=== PATIENT | female | born 1950 | race Caucasian/White ===

== ENCOUNTER → 2016-08-08 | Outpatient (CLI) | payer OTHER, BC ==
[2016-01-11 11:56] VITALS: BP 123/67
--- NOTE | 2016-08-09 11:18 | MG ---
HISTORY: SCREENING Comparison: Multiple priors dating back to February 06, 2012 FINDINGS: Bilateral CC and MLO projections of the right and left breast were obtained. Scattered fibroglandul ar tissue is seen to be present without significant interval change. No suspicious architectural di stortion, mass or clustered microcalcifications can be observed to suggest malignancy. No skin thic kening or nipple retraction is appreciated. No pathological lymphadenopathy can be identified. Luis E ign-appearing calcifications are noted within the right and left breast. IMPRESSION: NO RADIOGRAPHIC EVIDENCE OF MALIGNANCY. ACR CATEGORY 2 - benign findings. FOLLOW-UP EXAM 1 YEAR. Diagnostic CAD was utilized and reviewed. * 0 (ZERO) - ASSESSMENT INCOMPLETE; ADDITIONAL IMAGING IS NEEDED. * 1/1 (ONE) - NEGATIVE. * 2/II (TWO) - BENIGN FINDINGS. * 3/III (THREE) - PROBABLY BENIGN FINDING; SHORT INTERVAL FOLLOW-UP SUGGESTED. * 4/IV (FOUR) - SUSPICIOUS ABNORMALITY; BIOPSY SHOULD BE CONSIDERED. * 5/V (FIVE) - HIGHLY SUSPICIOUS OF MALIGNANCY; BIOPSY SHOULD BE PERFORMED. A NEGATIVE X-RAY REPORT SHOULD NOT DELAY BIOPSY IF A DOMINANT OR CLINICALLY SUSPICIOUS MASS IS PRESENT; 4 TO 8 PERCENT OF CANCERS ARE NOT IDENTIFIED BY X-RAY. A NEG ATIVE REPORT MAY REINFORCE THE CLINICAL IMPRESSION. ADENOSIS AND DENSE BREASTS MAY OBSCURE AN UNDER LYING NEOPLASM. Reported By:
== END ==
LOC: RAD 09:32
PROVIDERS: ATTEND Obstetrics & Gynecology
DX: Z12.31 Encounter for screening mammogram for malignant neoplasm of breast (principal)
CPT/HCPCS: 77067

== ENCOUNTER → 2017-02-21 | Outpatient (CLI) | payer OTHER, BC ==
[2016-01-11 11:56] VITALS: BP 123/67
== END ==
LOC: LAB 09:01
PROVIDERS: ATTEND Internal Medicine
DX: K64.0 First degree hemorrhoids (principal)
CPT/HCPCS: 82270